=== PATIENT | female | born 1955 | race Caucasian/White ===

== ENCOUNTER → 2020-03-16 | Outpatient (CLI) | payer OTHER ==
--- NOTE | 2020-03-16 15:54 | CARD ---
MR#: [id number] Date of Study: 03/16/2020 Ordering Physician: SHEY ZAPIEN, Referring Physician: SEHY ZAPIEN, Tech: Angela Frye APPROVED REPORT EXAM: Two-dimensional and M-mode echocardiogram with Doppler and color Doppler. Other Information Quality : AverageHR: 72bpm INDICATION Dyspnea RISK FACTORS Hypertension 2D DIMENSIONS RVDd2.2 (2.9-3.5cm)Left Atrium(2D)3.0 (1.6-4.0cm) IVSd0.7 (0.7-1.1cm)Aortic Root(2D)2.8 (2.0-3.7cm) LVDd4.5 (3.9-5.9cm)LVOT Diameter2.0 (1.8-2.4cm) PWd0.9 (0.7-1.1cm)LVDs2.4 (2.5-4.0cm) FS (%) 45.9 %SV71.4 ml Aortic Valve AoV Peak Oscar.220.9cm/sAoV VTI56.4cm AO Peak GR.19.5mmHgLVOT Peak Oscar.97.3cm/s LVOT VTI 22.51cmAO Mean GR.13mmHg ALESSIA (VMAX)1.63zg6UMD (VTI)1.20cm2 Mitral Valve MV E Wbgbrdjs46.4cm/sMV DECEL HAVN442rj MV A Akfnelpz16.5cm/sMV BUM75ic E/A Ratio1.0MVA (PHT)3.21cm2 TDI E/Lateral E'12.9E/Medial E'13.5 Pulmonary Valve PV Peak Yexsaacd44.1cm/sPV Peak Grad.3mmHg Tricuspid Valve TR P. Wtejqahv283xg/sRAP GYVRTDUQ6ihAz TR Peak Gr.29dxDaJBQW25eqUh Pulmonary Vein S1 Barnybnk39.6cm/sD2 Urwyskmy84.9cm/s PVa [id number] LEFT VENTRICLE The left ventricle is normal size. There is normal left ventricular wall thickness. The left ventricu lar systolic function is normal and the ejection fraction is within normal range. The Ejection Fracti on is 55-60%. There is normal LV segmental wall motion. Transmitral Doppler flow pattern is Grade I-a bnormal relaxation pattern. RIGHT VENTRICLE The right ventricle is normal size. There is normal right ventricular wall thickness. The right ventr icular systolic function is normal. ATRIA The left atrium size is normal. The right atrium size is normal. The interatrial septum is intact wit h no evidence for an atrial septal defect or patent foramen ovale as noted on 2-D or Doppler imaging. AORTIC VALVE The aortic valve is calcified but opens well. Doppler and Color Flow revealed no significant aortic r egurgitation. There is no significant aortic valvular stenosis. Calculated aortic valve area is 1.21 cm2 with maximum pressure gradient of 25 mmHg and mean pressure gradient of 15 mmHg. MITRAL VALVE The mitral valve is normal in structure and function. There is no evidence of mitral valve prolapse. There is no mitral valve stenosis. Doppler and Color-flow revealed trace mitral regurgitation. TRICUSPID VALVE The tricuspid valve is normal in structure and function. Doppler and Color Flow revealed trace tricus pid regurgitation 32 mmHg. There is no tricuspid valve stenosis. PULMONIC VALVE The pulmonic valve is not well visualized. Doppler and Color Flow revealed trace pulmonic valvular re gurgitation. GREAT VESSELS The aortic root is normal in size. The IVC is normal in size and collapses >50% with inspiration. PERICARDIAL EFFUSION There is no evidence of significant pericardial effusion. Critical Notification Critical Value: No <Conclusion> The left ventricle is normal size. The left ventricular systolic function is normal and the ejection fraction is within normal range. The Ejection Fraction is 55-60%. Doppler and Color Flow revealed no significant aortic regurgitation. There is no significant aortic valvular stenosis. Doppler and Color-flow revealed trace mitral regurgitation. Doppler and Color Flow revealed trace tricuspid regurgitation 32 mmHg. Signed by : Shey Zapien MD Electronically Approved : 03/16/2020 15:53:31
== END ==
LOC: ECHO 09:52
PROVIDERS: ATTEND Internal Medicine Cardiovascular Disease
DX: I35.1 Nonrheumatic aortic (valve) insufficiency (principal); I10 Essential (primary) hypertension
CPT/HCPCS: 93306

== ENCOUNTER 2021-07-01 10:23 | Inpatient (IN) | payer MEDICARE, OTHER ==
[~2021-07-01] VITALS: Ht 167.6 cm; Wt 66.4 kg
[2021-07-01 11:26] LABS: BASO # 0.1 x10^3/uL (0.0-0.2); BASO % 1 % (0-3); EOS # 0.1 x10^3/uL (0.0-0.7); EOS % 1 % (0-3); HEMATOCRIT 37.9 % (36.0-47.0); HEMOGLOBIN 12.3 g/dL (12.0-15.5); LYMPH # 1.3 x10^3/uL (1.0-4.8); LYMPH % 15 % (24-48); MEAN CORPUSCULAR HEMOGLOBIN 29 pg (25-35); MEAN CORPUSCULAR HGB CONC 33 g/dL (31-37); MEAN CORPUSCULAR VOLUME 90 fL (79-100); MONO # 0.6 x10^3/uL (0.0-1.1); MONO % 6 % (0-9); NEUT # 6.9 x10^3/uL (1.8-7.7); NEUT % 78 % (31-73); PLATELET COUNT 289 x10^3/uL (140-400); RED CELL DISTRIBUTION WIDTH 12.4 % (11.5-14.5); WHITE BLOOD COUNT 8.8 x10^3/uL (4.0-11.0)
[2021-07-01 11:27] LABS: CALCIUM 9.1 mg/dL (8.5-10.1); CREATININE 0.8 mg/dL (0.6-1.0); POTASSIUM 4.4 mmol/L (3.5-5.1)
[2021-07-01] MEDS ORDERED: CONTRAST GIVEN. MC PRN (11:30)
[2021-07-01] MEDS ORDERED: IOHEXOL 300 MG/ML 100ML VIAL. IV ONE (11:30)
--- NOTE | 2021-07-01 12:50 | RAD ---
CT soft tissue neck with contrast: Reason for examination: Right lower quadrant dental pain with edema and air in the mesentery into a r ight neck. Helical images were obtained through the neck with intravenous administration of 70 cc Omnipaque 300. Reconstruction was performed in sagittal and coronal planes. Exposure: One or more of the following individualized dose reduction techniques were utilized for thi s examination: 1. Automated exposure control 2. Adjustment of the mA and/or kV according to patient size 3. Use of iterative reconstruction technique. No abnormality seen at the thyroid gland. No abnormality seen at the visualized portion of the trachea and esophagus. Vocal cords are symmetric. The vallecula and piriform sinuses are symmetric. No abnormality seen at the epiglottis. No abnormalities are seen at the parotid or submandibular glands. The masseter and pterygoid muscles are symmetric. In the right buccal mucosa laterally adjacent to the mandible, there is an irregularly-shaped area of decreased density just anterior to the right masseter muscle which may contain small foci of air. Th is measures approximately 2.2 x 0.9 x 2.0 cm in AP, transverse and craniocaudal dimensions respective ly. This may represent a developing abscess. Dental caries are present in the right posterior molars. There is also some adjacent soft tissue edema. Small lymph nodes are seen in the submandibular regio n. IMPRESSION: 2.2 x 0.9 x 2 cm area of decreased density possibly containing small foci of air in the right buccal mucosa lateral to the mandible with adjacent edema. Findings are suspicious for abscess. There appear to be dental caries in the right posterior molars of the mandible. Electronically signed by: Sandar Frye MD (07/01/2021 12:48 PM) [id number]
[2021-07-01] MEDS ORDERED: AMPICILLIN/SULBACTAM 3 GM in IV DEXTROSE 5% 100ML 100 ML IV ONE (13:15)
--- NOTE | 2021-07-01 13:19 | ED.ADGEN ---
Past Medical History Additional Past Medical Histor: LUPUS Past Surgical History: Other Additional Past Surgical Histo: DENTAL, EYE SURGERY, Smoking Status: Former Smoker Alcohol Use: None General Adult EDM: Chief Complaint: DENTAL PROBLEM HPI: HPI: Patient is a 66 year old female, accompanied by her , who presents emergency department with complaints of right lower facial spreads to the right side of her neck and nausea for the last 3 days. Patient states she had a tooth extracted last month, she was taking amoxicillin after the extraction but never finished it. Two days ago when the pain began she resumed taking the remaining amoxicillin. Patient denies any fever, sore throat, cough, vomiting, diarrhea, abdominal pain, ear pain, headache, cough, or shortness of breath. She currently rates her discomfort a 10 out of 10 on pain scale, pain is worse if there is touched or she opens her mouth. Review of Systems: Review of Systems: Complete ROS is negative unless otherwise noted in the HPI. Current Medications: Current Medications Medications (Trade) Dose Ordered Sig/Davie Start Time Stop Time Status Last Admin Dose Admin Ampicillin Sodium/ Sulbactam Sodium 3 gm/Dextrose 100 ml @ 200 mls/hr 1X ONCE 07/01/21 13:15 07/01/21 13:40 DC 07/01/21 13:30 200 MLS/HR Info (CONTRAST GIVEN -- Rx MONITORING) 1 each PRN DAILY PRN 07/01/21 11:30 07/03/21 11:29 Iohexol (Omnipaque 300 Mg/ml) 70 ml 1X ONCE 07/01/21 11:30 07/01/21 11:31 DC 07/01/21 11:43 70 ML Allergies: Allergies: Allergies Coded Allergies Type Severity Reaction Last Updated Verified No Known Drug Allergies 07/01/21 No Physical Exam: PE: See above Constitutional: Well developed, well nourished, no acute distress, non-toxic appearance. [] HENT: Normocephalic, atraumatic, bilateral external ears normal, nose normal; swelling lateral to the right mandible with erythema to the right side of face that extends to the patient's neck concerning for dental abscess. [] Eyes: PERRLA, EOMI, conjunctiva normal, no discharge. [] Neck: Normal range of motion, no stridor. [] Cardiovascular:Heart rate regular rhythm, no murmur Lungs & Thorax: Respirations even and unlabored, no retractions, no respiratory distress, lungs CTA, no wheeze Skin: Warm, dry Extremities: No cyanosis, ROM intact, no edema. [] Neurologic: Alert and oriented X 3, no focal deficits noted. [] Psychologic: Affect normal, judgement normal, mood normal. [] Current Patient Data: Labs: Laboratory Tests Test 07/01/21 11:15 White Blood Count 8.8 x10^3/uL (4.0-11.0) Red Blood Count 4.20 x10^6/uL (3.50-5.40) Hemoglobin 12.3 g/dL (12.0-15.5) Hematocrit 37.9 % (36.0-47.0) Mean Corpuscular Volume 90 fL (79-100) Mean Corpuscular Hemoglobin 29 pg (25-35) Mean Corpuscular Hemoglobin Concent 33 g/dL (31-37) Red Cell Distribution Width 12.4 % (11.5-14.5) Platelet Count 289 x10^3/uL (140-400) Neutrophils (%) (Auto) 78 % (31-73) H Lymphocytes (%) (Auto) 15 % (24-48) L Monocytes (%) (Auto) 6 % (0-9) Eosinophils (%) (Auto) 1 % (0-3) Basophils (%) (Auto) 1 % (0-3) Neutrophils # (Auto) 6.9 x10^3/uL (1.8-7.7) Lymphocytes # (Auto) 1.3 x10^3/uL (1.0-4.8) Monocytes # (Auto) 0.6 x10^3/uL (0.0-1.1) Eosinophils # (Auto) 0.1 x10^3/uL (0.0-0.7) Basophils # (Auto) 0.1 x10^3/uL (0.0-0.2) Sodium Level 143 mmol/L (136-145) Potassium Level 4.4 mmol/L (3.5-5.1) Chloride Level 106 mmol/L (98-107) Carbon Dioxide Level 27 mmol/L (21-32) Anion Gap 10 (6-14) Blood Urea Nitrogen 14 mg/dL (7-20) Creatinine 0.8 mg/dL (0.6-1.0) Estimated GFR (Cockcroft-Gault) 72.0 Glucose Level 119 mg/dL (70-99) H Calcium Level 9.1 mg/dL (8.5-10.1) Laboratory Tests 07/01/21 11:15 Laboratory Tests 07/01/21 11:15 Vital Signs: Vital Signs Date Time Temp Pulse Resp B/P (MAP) Pulse Ox O2 Delivery O2 Flow Rate FiO2 07/01/21 13:30 67 15 146/68 (94) 97 Room Air 07/01/21 10:23 97.6 97.6 EKG: EKG: [] Heart Score: C/O Chest Pain: No Radiology/Procedures: Radiology/Procedures: PROCEDURE: CT SOFT TISSUE NECK W/CONTRAST CT soft tissue neck with contrast: Reason for examination: Right lower quadrant dental pain with edema and air in the mesentery into a right neck. Helical images were obtained through the neck with intravenous administration of 70 cc Omnipaque 300. Reconstruction was performed in sagittal and coronal p lanes. Exposure: One or more of the following individualized dose reduction techniques were utilized for this examination: 1. Automated exposure control 2. Adjustment of the mA and/or kV according to patient size 3. Use of iterative reconstruction technique. No abnormality seen at the thyroid gland. No abnormality seen at the visualized portion of the trachea and esophagus. Vocal cords are symmetric. The vallecula and piriform sinuses are symmetric. No abnormality seen at the epiglottis. No abnormalities are seen at the parotid or submandibular glands. The masseter and pterygoid muscles are symmetric. In the right buccal mucosa laterally adjacent to the mandible, there is an irregularly-shaped area of decreased density just anterior to the right masseter muscle which may contain small foci of air. This measures approximately 2.2 x 0.9 x 2.0 cm in AP, transverse and craniocaudal dimensions respectively. This may represent a developing abscess. Dental caries are present in the right posterior molars. There is also some adjacent soft tissue edema. Small lymph nodes are seen in the submandibular region. IMPRESSION: 2.2 x 0.9 x 2 cm area of decreased density possibly containing small foci of air in the right buccal mucosa lateral to the mandible with adjacent edema. Findin gs are suspicious for abscess. There appear to be dental caries in the right posterior molars of the mandible. Electronically signed by: Sandra Frye MD (07/01/2021 12:48 PM) [id number] [] Course & Med Decision Making: Course & Med Decision Making Pertinent Labs and Imaging studies reviewed. (See chart for details) [id number] spoke with Dr. Vera professional employer consultant for Oral Max Sx. We discussed the patient's CT and lab results. Will order 1.5 gm of Unasyn IV as requested and admit to the hospitalist. 1344-spoke with Dr. Winkler who is the admitting physician, and care was assumed following discussion of patient. Will admit patient for right dental abscess. Patient's vital signs stable. Patient remains afebrile, appears nontoxic, respirations even and unlabored. Patient will be admitted to the medical/floor. Patient's case and plan of care also discussed with Dr. Gao [] Kathie Disclaimer: Kathie Disclaimer: This electronic medical record was generated, in whole or in part, using a voice recognition dictation system. Departure Departure Impression: Primary Impression: Abscess, dental Disposition: ADMITTED INPATIENT Condition: STABLE Referrals: SHER DOLL (PCP) LUCIE VALENCIA APRN Jul 01, 2021 13:19
--- NOTE | 2021-07-01 13:41 | PDOC1 ---
History and Physical Date of Admission Date of Admission DATE: 07/01/21 TIME: 13:38 Identification/Chief Complaint Chief Complaint Jaw pain Source Source: Patient History of Present Illness History of Present Illness Ms Dewitt is a 66 year old female with PMHx Lupus (2003), CVA (2006), PUD (h. pylori positive) who comes to ED accompanied by her c/o right lower facial spreads to the right side of her neck and nausea for the last 3 days. Patient states she had a right mandibular tooth extracted about 4 weeks ago and was taking amoxicillin after the extraction but never finished it because she started feeling better and in fact went to have routine cleaning 2 weeks ago. On 06/27/21 she noted a little tenderness and sensitivity while eating. On 06/28/2021 she had some swelling of her right neck and started taking the amoxicillin again. 03/13/2018 she awoke in pain and started taking ibuprofen 600 mg and today 07/01/2021 woke and came to the ED because pain was unbearable and she now has pain on opening her mouth. Pain is 10/10 to touch. She cannot eat or drink. No fever, sore throat, cough, vomiting, diarrhea, abdominal pain, ear pain, headache, cough, or shortness of breath. She does have lupus and history of CVA remotely only takes atenolol outpatient and has been taken off aspirin by her internal security manager due to peptic ulcer disease and bleeding ulcer. She notes a recent EGD with no residual ulcer in February 2021. She regularly sees Dr. Moore from cardiology, has had a emergency management system director since her CVA in 2006. WBC 8.8, Hb 12.3, platelets 289, NA 143, K4.4, BUN 14, CR 0.8, glucose 119, calcium 9.1 [id number] fluid collection was noted on the CT of right mandible. Oral maxillo facial surgery consulted Admitted for further care. Past Medical History Cardiovascular: HTN CENTRAL NERVOUS SYSTEM: CVA (2006) Rheumatologic: Other (Lupus 2003) Past Surgical History Past Surgical History: Other (tooth extraction) Family History Family History: Hypertension Social History Smoke: Quit ALCOHOL: none Drugs: None Current Medications Current Medications Current Medications Iohexol (Omnipaque 300 Mg/ml) 70 ml 1X ONCE IV Last administered on 07/01/21at 11:43; Start 07/01/21 at 11:30; Stop 07/01/21 at 11:31; Status DC Info (CONTRAST GIVEN -- Rx MONITORING) 1 each PRN DAILY PRN MC SEE COMMENTS; Start 07/01/21 at 11:30; Stop 07/03/21 at 11:29 Ampicillin Sodium/ Sulbactam Sodium 3 gm/Dextrose 100 ml @ 200 mls/hr 1X ONCE IV Last administered on 07/01/21at 13:30; Start 07/01/21 at 13:15; Stop 07/01/21 at 13:44 Allergies Allergies: Coded Allergies: No Known Drug Allergies (Unverified , 07/01/21) ROS General: No: Chills, Night Sweats, Fatigue, Malaise, Appetite, Other PSYCHOLOGICAL ROS: No: Anxiety, Behavioral Disorder, Concentration difficultie, Decreased libido, Depression, Disorientation, Hallucinations, Hostility, Irritablity, Memory difficulties, Mood Swings, Obsessive thoughts, Physical abuse, Sexual abuse, Sleep disturbances, Suicidal ideation, Other Eyes: No Blurry vision, No Decreased vision, No Double vision, No Dry eyes, No Excessive tearing, No Eye Pain, No Itchy Eyes, No Loss of vision, No Photophobia, No Scotomata, No Uses contacts, No Uses glasses, No Other HEENT: YES: Heacaches, Oral lesions; No: Visual Changes, Hearing change, Nasal congestion, Nasal discharge, Sinus pain, Sore Throat, Epistaxis, Sneezing, Snoring, Tinnitus, Vertigo, Vocal changes, Other ALLERGY AND IMMUNOLOGY: No: Hives, Insect Bite Sensitivity, Itchy/Watery Eyes, Nasal Congestion, Post Nasal Drip, Seasonal Allergies, Other Hematological and Lymphatic: No: Bleeding Problems, Blood Clots, Blood Transfusions, Brusing, Night Sweats, Pallor, Swollen Lymph Nodes, Other ENDOCRINE: No: Breast Changes, Galactorrhea, Hair Pattern Changes, Hot Flashes, Malaise/lethargy, Mood Swings, Palpitations, Polydipsia/polyuria, Skin Changes, Temperature Intolerance, Unexpected Weight Changes, Other Breast: No New/Changing Breast Lumps, No Nipple changes, No Nipple discharge, No Other Respiratory: No: Cough, Hemoptysis, Orthopnea, Pleuritic Pain, Shortness of breath, SOB with excertion, Sputum Changes, Stridor, Tachypnea, Wheezing, Other Cardiovascular: No Chest Pain, No Palpitations, No Orthopnea, No Paroxysmal Noc. Dyspnea, No Edema, No Lt Headedness, No Other Gastrointestinal: No Nausea, No Vomiting, No Abdominal Pain, No Diarrhea, No Constipation, No Melena, No Hematochezia, No Other Genitourinary: No Dysuria, No Frequency, No Incontinence, No Hematuria, No Retention, No Discharge, No Urgency, No Pain, No Flank Pain, No Other, No , No , No , No , No , No , No Musculoskeletal: No Gait Disturbance, No Joint Pain, No Joint Stiffness, No Joint Swelling, No Muscle Pain, No Muscular Weakness, No Pain In:, No Swelling In:, No Other Neurological: No Behavorial Changes, No Bowel/Bladder ControlChng, No Confusion, No Dizziness, No Gait Disturbance, No Headaches, No Impaired Coord/balance, No Memory Loss, No Numbness/Tingling, No Seizures, No Speech Problems, No Tremors, No Visual Changes, No Weakness, No Other Skin: No Dry Skin, No Eczema, No Hair Changes, No Lumps, No Mole Changes, No Mottling, No Nail Changes, No Pruritus, No Rash, No Skin Lesion Changes, No Other, No Acne Vitals Vitals Vital Signs Date Time Temp Pulse Resp B/P (MAP) Pulse Ox O2 Delivery O2 Flow Rate FiO2 07/01/21 10:23 97.6 78 16 208/99 (135) 100 Room Air 97.6 Labs Labs Laboratory Tests Test 07/01/21 11:15 White Blood Count 8.8 x10^3/uL (4.0-11.0) Red Blood Count 4.20 x10^6/uL (3.50-5.40) Hemoglobin 12.3 g/dL (12.0-15.5) Hematocrit 37.9 % (36.0-47.0) Mean Corpuscular Volume 90 fL (79-100) Mean Corpuscular Hemoglobin 29 pg (25-35) Mean Corpuscular Hemoglobin Concent 33 g/dL (31-37) Red Cell Distribution Width 12.4 % (11.5-14.5) Platelet Count 289 x10^3/uL (140-400) Neutrophils (%) (Auto) 78 % (31-73) Lymphocytes (%) (Auto) 15 % (24-48) Monocytes (%) (Auto) 6 % (0-9) Eosinophils (%) (Auto) 1 % (0-3) Basophils (%) (Auto) 1 % (0-3) Neutrophils # (Auto) 6.9 x10^3/uL (1.8-7.7) Lymphocytes # (Auto) 1.3 x10^3/uL (1.0-4.8) Monocytes # (Auto) 0.6 x10^3/uL (0.0-1.1) Eosinophils # (Auto) 0.1 x10^3/uL (0.0-0.7) Basophils # (Auto) 0.1 x10^3/uL (0.0-0.2) Sodium Level 143 mmol/L (136-145) Potassium Level 4.4 mmol/L (3.5-5.1) Chloride Level 106 mmol/L (98-107) Carbon Dioxide Level 27 mmol/L (21-32) Anion Gap 10 (6-14) Blood Urea Nitrogen 14 mg/dL (7-20) Creatinine 0.8 mg/dL (0.6-1.0) Estimated GFR (Cockcroft-Gault) 72.0 Glucose Level 119 mg/dL (70-99) Calcium Level 9.1 mg/dL (8.5-10.1) Laboratory Tests Test 07/01/21 11:15 White Blood Count 8.8 x10^3/uL (4.0-11.0) Red Blood Count 4.20 x10^6/uL (3.50-5.40) Hemoglobin 12.3 g/dL (12.0-15.5) Hematocrit 37.9 % (36.0-47.0) Mean Corpuscular Volume 90 fL (79-100) Mean Corpuscular Hemoglobin 29 pg (25-35) Mean Corpuscular Hemoglobin Concent 33 g/dL (31-37) Red Cell Distribution Width 12.4 % (11.5-14.5) Platelet Count 289 x10^3/uL (140-400) Neutrophils (%) (Auto) 78 % (31-73) Lymphocytes (%) (Auto) 15 % (24-48) Monocytes (%) (Auto) 6 % (0-9) Eosinophils (%) (Auto) 1 % (0-3) Basophils (%) (Auto) 1 % (0-3) Neutrophils # (Auto) 6.9 x10^3/uL (1.8-7.7) Lymphocytes # (Auto) 1.3 x10^3/uL (1.0-4.8) Monocytes # (Auto) 0.6 x10^3/uL (0.0-1.1) Eosinophils # (Auto) 0.1 x10^3/uL (0.0-0.7) Basophils # (Auto) 0.1 x10^3/uL (0.0-0.2) Sodium Level 143 mmol/L (136-145) Potassium Level 4.4 mmol/L (3.5-5.1) Chloride Level 106 mmol/L (98-107) Carbon Dioxide Level 27 mmol/L (21-32) Anion Gap 10 (6-14) Blood Urea Nitrogen 14 mg/dL (7-20) Creatinine 0.8 mg/dL (0.6-1.0) Estimated GFR (Cockcroft-Gault) 72.0 Glucose Level 119 mg/dL (70-99) Calcium Level 9.1 mg/dL (8.5-10.1) Images Images CT soft tissue neck with contrast: Reason for examination: Right lower quadrant dental pain with edema and air in the mesentery into a right neck. Helical images were obtained through the neck with intravenous administration of 70 cc Omnipaque 300. Reconstruction was performed in sagittal and coronal planes. Exposure: One or more of the following individualized dose reduction techniques were utilized for this examination: 1. Automated exposure control 2. Adjustment of the mA and/or kV according to patient size 3. Use of iterative reconstruction technique. No abnormality seen at the thyroid gland. No abnormality seen at the visualized portion of the trachea and esophagus. Vocal cords are symmetric. The vallecula and piriform sinuses are symmetric. No abnormality seen at the epiglottis. No abnormalities are seen at the parotid or submandibular glands. The masseter and pterygoid muscles are symmetric. In the right buccal mucosa laterally adjacent to the mandible, there is an irregularly-shaped area of decreased density just anterior to the right masseter muscle which may contain small foci of air. This measures approximately 2.2 x 0.9 x 2.0 cm in AP, transverse and craniocaudal dimensions respectively. This may represent a developing abscess. Dental caries are present in the right posterior molars. There is also some adjacent soft tissue edema. Small lymph nodes are seen in the submandibular region. IMPRESSION: 2.2 x 0.9 x 2 cm area of decreased density possibly containing small foci of air in the right buccal mucosa lateral to the mandible with adjacent edema. Findings are suspicious for abscess. There appear to be dental caries in the right posterior molars of the mandible. VTE Prophylaxis Ordered VTE Prophylaxis Devices: Yes VTE Pharmacological Prophylaxi: No Assessment/Plan Assessment/Plan Right mandible abscess - IV unasyn. NPO after midnight. Oral maxillo facial surgery consulted, Dr. Vera. IV pain control Dental caries - adjacent to abscess site H/o Lupus - off meds. She thinks burned out lupus H/o remote CVA - does not take any antiplatelet agent H/o PUD (h. pylori positive) - sees Dr Reich outpatient FEN - NPO after midnight, soft diet after PPX - lovenox FULL CODE Dispo - inpatient Justifications for Admission Other Justification RASHAD ROJAS MD Jul 01, 2021 13:41
[2021-07-01] MEDS ORDERED: ONDANSETRON PF 4 MG/2 ML VIAL. IVP PRN (13:45)
[2021-07-01] MEDS ORDERED: ACETAMINOPHEN 325 MG TABLET. PO PRN (13:45)
[2021-07-01] MEDS ORDERED: fentaNYL PF VIAL 100 MCG/2 ML VIAL IVP PRN (13:45)
[2021-07-01] MEDS ORDERED: traMADol 50 MG TABLET PO PRN (15:30)
--- NOTE | 2021-07-01 16:19 | PDOC1 ---
HISTORY AND PHYSICAL Date of Service: DATE: 07/01/21 TIME: 16:10 Chief Complaint Chief Complaint This 66 year old female has been admitted with a chief complaint of lower right facial swelling. Pt reports dental extraction of lower right mandible approximately 1 month ago. She had painful symptoms begin this past Friday, worsen on . She called the dental office on Friday and was unable to reach them. She began to have swelling Friday that began to worsen. She also notes pain in the adjacent teeth. She reported today (Friday) to the [facility] ER for evaluation. A [id number] fluid collection was noted on the CT. Past Medical History Cardiovascular: No pertinent hx Pulmonary: No pertinent hx CENTRAL NERVOUS SYSTEM: CVA (stroke approx. 15 years ago) GI: No pertinent hx Heme/Onc: No pertinent hx Hepatobiliary: No pertinent hx Psych: No pertinent hx Musculoskeletal: low back pain Rheumatologic: Other (Lupus) Infectious disease: No pertinent hx ENT: Other (pain lower right face/mandible. ++Trismus RAYNA at 24mm) Renal/: No pertinent hx Endocrine: No pertinent hx Dermatology: No pertinent hx Allergies Allergies Allergies Coded Allergies Type Severity Reaction Last Updated Verified No Known Drug Allergies 07/01/21 No Review of Symptoms Review of Systems A 14 point ROS was completed with the following noted as positive: Other systems reviewed and negative. Medications Medications reviewed. Physical Exam Physical Exam General Appearance - alert and in no distress Chest - decreased breath sounds at bases Heart - S1 and S2 normal Abdomen - soft, non tender Neurological - alert and oriented Musculoskeletal - generalized weakness Extremities - no edema VTE Prophylaxis Ordered VTE Prophylaxis Devices: Yes VTE Pharmacological Prophylaxi: Yes Assessment Labs Laboratory Tests Test 07/01/21 11:15 White Blood Count 8.8 x10^3/uL (4.0-11.0) Red Blood Count 4.20 x10^6/uL (3.50-5.40) Hemoglobin 12.3 g/dL (12.0-15.5) Hematocrit 37.9 % (36.0-47.0) Mean Corpuscular Volume 90 fL (79-100) Mean Corpuscular Hemoglobin 29 pg (25-35) Mean Corpuscular Hemoglobin Concent 33 g/dL (31-37) Red Cell Distribution Width 12.4 % (11.5-14.5) Platelet Count 289 x10^3/uL (140-400) Neutrophils (%) (Auto) 78 % (31-73) Lymphocytes (%) (Auto) 15 % (24-48) Monocytes (%) (Auto) 6 % (0-9) Eosinophils (%) (Auto) 1 % (0-3) Basophils (%) (Auto) 1 % (0-3) Neutrophils # (Auto) 6.9 x10^3/uL (1.8-7.7) Lymphocytes # (Auto) 1.3 x10^3/uL (1.0-4.8) Monocytes # (Auto) 0.6 x10^3/uL (0.0-1.1) Eosinophils # (Auto) 0.1 x10^3/uL (0.0-0.7) Basophils # (Auto) 0.1 x10^3/uL (0.0-0.2) Sodium Level 143 mmol/L (136-145) Potassium Level 4.4 mmol/L (3.5-5.1) Chloride Level 106 mmol/L (98-107) Carbon Dioxide Level 27 mmol/L (21-32) Anion Gap 10 (6-14) Blood Urea Nitrogen 14 mg/dL (7-20) Creatinine 0.8 mg/dL (0.6-1.0) Estimated GFR (Cockcroft-Gault) 72.0 Glucose Level 119 mg/dL (70-99) Calcium Level 9.1 mg/dL (8.5-10.1) Laboratory Tests Test 07/01/21 11:15 White Blood Count 8.8 x10^3/uL (4.0-11.0) Red Blood Count 4.20 x10^6/uL (3.50-5.40) Hemoglobin 12.3 g/dL (12.0-15.5) Hematocrit 37.9 % (36.0-47.0) Mean Corpuscular Volume 90 fL (79-100) Mean Corpuscular Hemoglobin 29 pg (25-35) Mean Corpuscular Hemoglobin Concent 33 g/dL (31-37) Red Cell Distribution Width 12.4 % (11.5-14.5) Platelet Count 289 x10^3/uL (140-400) Neutrophils (%) (Auto) 78 % (31-73) Lymphocytes (%) (Auto) 15 % (24-48) Monocytes (%) (Auto) 6 % (0-9) Eosinophils (%) (Auto) 1 % (0-3) Basophils (%) (Auto) 1 % (0-3) Neutrophils # (Auto) 6.9 x10^3/uL (1.8-7.7) Lymphocytes # (Auto) 1.3 x10^3/uL (1.0-4.8) Monocytes # (Auto) 0.6 x10^3/uL (0.0-1.1) Eosinophils # (Auto) 0.1 x10^3/uL (0.0-0.7) Basophils # (Auto) 0.1 x10^3/uL (0.0-0.2) Sodium Level 143 mmol/L (136-145) Potassium Level 4.4 mmol/L (3.5-5.1) Chloride Level 106 mmol/L (98-107) Carbon Dioxide Level 27 mmol/L (21-32) Anion Gap 10 (6-14) Blood Urea Nitrogen 14 mg/dL (7-20) Creatinine 0.8 mg/dL (0.6-1.0) Estimated GFR (Cockcroft-Gault) 72.0 Glucose Level 119 mg/dL (70-99) Calcium Level 9.1 mg/dL (8.5-10.1) STROKE: CVA (remote past) SEPSIS: Other (localized lower right facial likely odontogenic infection. Possibly osteomyelitis as extraction was performed 1 month ago. Possilby necrotic adjacent tooth) Plan Plan A/P 66 yof s/p extraction 1 month ago with several days of pain and swelling. PMH significant for Lupus. Pt on IV ABX currently. Plan to post to the OR for I&D of lower right intraoral space. If worsening, plan percutaneous incision as well. Possible extraction of any non restorable teeth. Plan deep bone biopsy and debridement of non vital bone. Plan NPO after midnight. For more details regarding further plans, please refer to the orders. Justifications for Admission Other Justification CARD,RENEE Santana DMD Jul 01, 2021 16:19
[2021-07-01 16:30] VITALS: BP 202/82
[2021-07-01] MEDS ORDERED: hydrALAZINE 20 MG/ML VIAL. IVP PRN (17:00)
[2021-07-01] MEDS: AMPICILLIN/SULBACTAM 1.5 GM in IV NORMAL SALINE 50ML 50 ML IV SCH (17:42)
[2021-07-01 19:00] VITALS: BP 126/53
[2021-07-01] MEDS: METOPROLOL TART IMMED RELEASE 25 MG TABLET. PO SCH (20:10)
[2021-07-01] MEDS: KETOROLAC 30 MG/ML VIAL. IVP PRN (20:10)
[2021-07-01 23:00] VITALS: BP 144/72
[2021-07-02] MEDS: AMPICILLIN/SULBACTAM 1.5 GM in IV NORMAL SALINE 50ML 50 ML IV SCH ×4 (00:50→17:27)
[2021-07-02 03:00] VITALS: BP 163/79
[2021-07-02 07:00] VITALS: BP 183/80
[2021-07-02 07:55] LABS: ALBUMIN 3.3 g/dL (3.4-5.0); ALBUMIN/GLOBULIN RATIO 1.1 (1.0-1.7); CALCIUM 8.5 mg/dL (8.5-10.1); CREATININE 0.7 mg/dL (0.6-1.0); POTASSIUM 4.5 mmol/L (3.5-5.1); TOTAL BILIRUBIN 0.4 mg/dL (0.2-1.0); TOTAL PROTEIN 6.3 g/dL (6.4-8.2)
[2021-07-02] MEDS ORDERED: C.DIFF MED SCREEN BY RX. MC ONE (09:00)
[2021-07-02] MEDS: METOPROLOL TART IMMED RELEASE 25 MG TABLET. PO SCH (09:01)
[2021-07-02] MEDS: KETOROLAC 30 MG/ML VIAL. IVP PRN (09:03)
--- NOTE | 2021-07-02 09:17 | NUR ---
Pharmacy Medication Review S: Consulted for medication review re: C.diff Risk Assessment score of 4 O: YESENIA MURPHY is a 66 year old with: Previous C.diff infection: No Previous hospitalization: Within 60 days Recent antibiotics: Within 30 days Use of gastric acid suppressor: No Transfer from [place]/[facility]: No Current antibiotic regimen: Current acid suppression regimen: A: Patient has been identified as having risk factors for C.diff infection as noted above. P: Antibiotic Regimen recommendation made: No Probiotic ordered: No (Lupas Patient) PPI changed to [id number]: N/A Domingo Truong, [facility], 07/02/21 0917
--- NOTE | 2021-07-02 10:11 | PDOC2 ---
VANGIE MARIO SENIOR RD ENGINEER 07/02/21 1011: CARDIAC CONSULT DATE OF CONSULT Date of Consult DATE: 07/02/21 TIME: 10:00 REASON FOR CONSULT Reason for Consult: Pre-op eval REFERRING PHYSICIAN Referring Physician: Dr. Winkler SOURCE Source: Chart review, Patient HISTORY OF PRESENT ILLNESS HISTORY OF PRESENT ILLNESS This is a 66 yo female who presented secondary to right lower facial/jaw pain and swelling that extends to her right neck. Associated with nausea. Patient reports having tooth extracted last month. She did not complete course of amoxicillin post extraction. Pain has become so severe that she has been unable to eat/drink, which prompted her arrival to the ED. CT of right neck with evidence of abscess. She denies any chest pain, palpitation, dizziness, diaphoresis, or SOA. PAST MEDICAL HISTORY Cardiovascular: HTN CENTRAL NERVOUS SYSTEM: CVA GI: Peptic Ulcer disease Rheumatologic: Other (Lupus ) PAST SURGICAL HISTORY Past Surgical History: Other (tooth extraction ) FAMILY HISTORY Family History: Hypertension SOCIAL HISTORY Smoke: Quit ALCOHOL: none Drugs: None CURRENT MEDICATIONS CURRENT MEDICATIONS Current Medications Medications (Trade) Dose Ordered Sig/Davie Route PRN Reason Start Time Stop Time Status Last Admin Dose Admin Iohexol (Omnipaque 300 Mg/ml) 70 ml 1X ONCE IV 07/01/21 11:30 07/01/21 11:31 DC 07/01/21 11:43 Ampicillin Sodium/ Sulbactam Sodium 3 gm/Dextrose 100 ml @ 200 mls/hr 1X ONCE IV 07/01/21 13:15 07/01/21 13:40 DC 07/01/21 13:30 Ampicillin Sodium/ Sulbactam Sodium 1.5 gm/Sodium Chloride 50 ml @ 100 mls/hr Q6HRS IV 07/01/21 18:00 07/02/21 04:56 Metoprolol Tartrate (Lopressor) 25 mg BID PO 07/01/21 21:00 07/02/21 09:01 Hydralazine HCl (Apresoline Inj) 10 mg PRN Q4HRS PRN IVP ELEVATED BP, SEE COMMENTS 07/01/21 17:00 07/01/21 17:43 Ketorolac Tromethamine (Toradol 30mg Vial) 30 mg PRN Q6HRS PRN IVP INFLAMMATION 07/01/21 17:00 07/02/21 09:03 DC 07/02/21 09:03 ALLERGIES ALLERGIES: Coded Allergies: No Known Drug Allergies (Unverified , 07/01/21) ROS Review of System 14 point ROS conducted with pertinent positives noted above in HPI PHYSICAL EXAM General: Alert, Oriented X3, Cooperative, No acute distress HEENT: Atraumatic, Other (right jaw/facial edema ) Lungs: Clear to auscultation Heart: Regular rate Abdomen: Soft Extremities: Normal pulses Skin: No significant lesion Neuro: Normal speech, Sensation intact Psych/Mental Status: Mental status NL, Mood NL MUSCULOSKELETAL: Osteoarthritic changes both hands VITALS/I&O VITALS/I&O: Vital Signs Date Time Temp Pulse Resp B/P (MAP) Pulse Ox O2 Delivery O2 Flow Rate FiO2 07/02/21 09:01 77 163/79 07/02/21 03:00 98.1 18 97 Room Air 98.1 I & O 07/01/21 07/01/21 07/02/21 15:00 23:00 07:00 Intake Total 300 ml Balance 300 ml LABS Lab: Laboratory Tests Test 07/01/21 11:15 07/01/21 13:49 07/02/21 06:45 White Blood Count 8.8 x10^3/uL (4.0-11.0) Red Blood Count 4.20 x10^6/uL (3.50-5.40) Hemoglobin 12.3 g/dL (12.0-15.5) Hematocrit 37.9 % (36.0-47.0) Mean Corpuscular Volume 90 fL (79-100) Mean Corpuscular Hemoglobin 29 pg (25-35) Mean Corpuscular Hemoglobin Concent 33 g/dL (31-37) Red Cell Distribution Width 12.4 % (11.5-14.5) Platelet Count 289 x10^3/uL (140-400) Neutrophils (%) (Auto) 78 % (31-73) H Lymphocytes (%) (Auto) 15 % (24-48) L Monocytes (%) (Auto) 6 % (0-9) Eosinophils (%) (Auto) 1 % (0-3) Basophils (%) (Auto) 1 % (0-3) Neutrophils # (Auto) 6.9 x10^3/uL (1.8-7.7) Lymphocytes # (Auto) 1.3 x10^3/uL (1.0-4.8) Monocytes # (Auto) 0.6 x10^3/uL (0.0-1.1) Eosinophils # (Auto) 0.1 x10^3/uL (0.0-0.7) Basophils # (Auto) 0.1 x10^3/uL (0.0-0.2) Sodium Level 143 mmol/L (136-145) 145 mmol/L (136-145) Potassium Level 4.4 mmol/L (3.5-5.1) 4.5 mmol/L (3.5-5.1) Chloride Level 106 mmol/L (98-107) 107 mmol/L (98-107) Carbon Dioxide Level 27 mmol/L (21-32) 26 mmol/L (21-32) Anion Gap 10 (6-14) 12 (6-14) Blood Urea Nitrogen 14 mg/dL (7-20) 12 mg/dL (7-20) Creatinine 0.8 mg/dL (0.6-1.0) 0.7 mg/dL (0.6-1.0) Estimated GFR (Cockcroft-Gault) 72.0 84.0 Glucose Level 119 mg/dL (70-99) H 98 mg/dL (70-99) Calcium Level 9.1 mg/dL (8.5-10.1) 8.5 mg/dL (8.5-10.1) SARS-CoV-2 (PCR) Not detected (NOT DETECTD) BUN/Creatinine Ratio 17 (6-20) Total Bilirubin 0.4 mg/dL (0.2-1.0) Aspartate Amino Transferase (AST) 11 U/L (15-37) L Alanine Aminotransferase (ALT) 22 U/L (14-59) Alkaline Phosphatase 64 U/L (46-116) Total Protein 6.3 g/dL (6.4-8.2) L Albumin 3.3 g/dL (3.4-5.0) L Albumin/Globulin Ratio 1.1 (1.0-1.7) Laboratory Tests 07/01/21 11:15 Laboratory Tests 07/01/21 11:15 07/02/21 06:45 ECHOCARDIOGRAM ECHOCARDIOGRAM <Conclusion> The left ventricle is normal size. The left ventricular systolic function is normal and the ejection fraction is within normal range. The Ejection Fraction is 55-60%. Doppler and Color Flow revealed no significant aortic regurgitation. There is no significant aortic valvular stenosis. Doppler and Color-flow revealed trace mitral regurgitation. Doppler and Color Flow revealed trace tricuspid regurgitation 32 mmHg. DATE: 03/16/20 1221 ASSESSMENT/PLAN ASSESSMENT/PLAN 1. Right/jaw neck pain/edema; s/p recent tooth extraction. CT with evidence of right mandible abscess. Oral maxillo facial surgery consulted. Plans for I&D of lower right intraoral space. Echo 03/31 with preserved LV function. Will check echo to assess LV systolic function. Would be mild-moderate risk for non-cardiac surgery unless significant LV dysfunction was noted. 2. Hypertension; controlled overall 3. H/o CVA; secondary prevention upon discharge 4. H/o Lupus SHEY DIAS MD 07/02/21 1642: CARDIAC CONSULT ASSESSMENT/PLAN ASSESSMENT/PLAN Patient seen and examined She is feeling mildly better. I agree with our nurse practitioners assessment and plan. Right/jaw neck pain/edema; s/p recent tooth extraction. CT with evidence of right mandible abscess. Oral maxillo facial surgery consulted. Plans for I&D of lower right intraoral space. Previous echo on 03/31 with preserved LV function. Will check echo to update assessment of LV systolic function. Would be mild- moderate risk for non-cardiac surgery unless significant LV dysfunction or valve disease is present. Hypertension; controlled overall H/o CVA; secondary prevention upon discharge H/o Lupus VANGIE MARIO APRN Jul 02, 2021 10:11 SHEY DIAS MD Jul 02, 2021 16:42
[2021-07-02 11:00] VITALS: BP 158/82
--- NOTE | 2021-07-02 11:04 | PDOC ---
[employer] PROGRESS NOTE Date of Service DOS: DATE: 07/02/21 TIME: 11:03 Chief Complaint Chief Complaint Dental infection Recent dental extraction with noncompliance with antibiotics after surgery History of lupus Hypertension Stroke PUD History of Present Illness History of Present Illness 07/02/2021 Patient seen and examined Discussed with RN Chart reviewed Discussed with case management Dr. Vera plans to take her to surgery today 1-Plan to post to the OR for I&D of lower right intraoral space. If worsening, plan percutaneous incision as well. 2-Possible extraction of any non restorable teeth. 3-Plan deep bone biopsy and debridement of non vital bone. Vitals/I&O Vitals/I&O: Vital Signs Date Time Temp Pulse Resp B/P (MAP) Pulse Ox O2 Delivery O2 Flow Rate FiO2 07/02/21 09:01 77 163/79 07/02/21 03:00 98.1 18 97 Room Air 98.1 I & O 07/01/21 07/01/21 07/02/21 15:00 23:00 07:00 Intake Total 300 ml Balance 300 ml Physical Exam General: Alert Heart: Regular rate Lungs: Clear Abdomen: Normal bowel sounds Extremities: No clubbing Skin: No rashes Labs Labs: Laboratory Tests Test 07/01/21 11:15 07/01/21 13:49 07/02/21 06:45 White Blood Count 8.8 x10^3/uL (4.0-11.0) Red Blood Count 4.20 x10^6/uL (3.50-5.40) Hemoglobin 12.3 g/dL (12.0-15.5) Hematocrit 37.9 % (36.0-47.0) Mean Corpuscular Volume 90 fL (79-100) Mean Corpuscular Hemoglobin 29 pg (25-35) Mean Corpuscular Hemoglobin Concent 33 g/dL (31-37) Red Cell Distribution Width 12.4 % (11.5-14.5) Platelet Count 289 x10^3/uL (140-400) Neutrophils (%) (Auto) 78 % (31-73) Lymphocytes (%) (Auto) 15 % (24-48) Monocytes (%) (Auto) 6 % (0-9) Eosinophils (%) (Auto) 1 % (0-3) Basophils (%) (Auto) 1 % (0-3) Neutrophils # (Auto) 6.9 x10^3/uL (1.8-7.7) Lymphocytes # (Auto) 1.3 x10^3/uL (1.0-4.8) Monocytes # (Auto) 0.6 x10^3/uL (0.0-1.1) Eosinophils # (Auto) 0.1 x10^3/uL (0.0-0.7) Basophils # (Auto) 0.1 x10^3/uL (0.0-0.2) Sodium Level 143 mmol/L (136-145) 145 mmol/L (136-145) Potassium Level 4.4 mmol/L (3.5-5.1) 4.5 mmol/L (3.5-5.1) Chloride Level 106 mmol/L (98-107) 107 mmol/L (98-107) Carbon Dioxide Level 27 mmol/L (21-32) 26 mmol/L (21-32) Anion Gap 10 (6-14) 12 (6-14) Blood Urea Nitrogen 14 mg/dL (7-20) 12 mg/dL (7-20) Creatinine 0.8 mg/dL (0.6-1.0) 0.7 mg/dL (0.6-1.0) Estimated GFR (Cockcroft-Gault) 72.0 84.0 Glucose Level 119 mg/dL (70-99) 98 mg/dL (70-99) Calcium Level 9.1 mg/dL (8.5-10.1) 8.5 mg/dL (8.5-10.1) Coronavirus (COVID-19)(PCR) Not detected (NOT DETECTD) BUN/Creatinine Ratio 17 (6-20) Total Bilirubin 0.4 mg/dL (0.2-1.0) Aspartate Amino Transf (AST/SGOT) 11 U/L (15-37) Alanine Aminotransferase (ALT/SGPT) 22 U/L (14-59) Alkaline Phosphatase 64 U/L (46-116) Total Protein 6.3 g/dL (6.4-8.2) Albumin 3.3 g/dL (3.4-5.0) Albumin/Globulin Ratio 1.1 (1.0-1.7) Assessment and Plan Assessmemt and Plan Problems Medical Problems: (1) Abscess, dental Status: Acute Dental infection Recent dental extraction with noncompliance with antibiotics after surgery History of lupus Hypertension Stroke PUD Plan Continue antibiotics Pain meds next IV fluids Appreciate cardiology and oral surgery input The plan is to go to surgery today please see below 1-Plan to post to the OR for I&D of lower right intraoral space. If worsening, plan percutaneous incision as well. 2-Possible extraction of any non restorable teeth. 3-Plan deep bone biopsy and debridement of non vital bone. Comment Review of Relevant I have reviewed the following items elly (where applicable) has been applied. Medications: Current Medications Medications (Trade) Dose Ordered Sig/Davie Route PRN Reason Start Time Stop Time Status Last Admin Dose Admin Iohexol (Omnipaque 300 Mg/ml) 70 ml 1X ONCE IV 07/01/21 11:30 07/01/21 11:31 DC 07/01/21 11:43 Ampicillin Sodium/ Sulbactam Sodium 3 gm/Dextrose 100 ml @ 200 mls/hr 1X ONCE IV 07/01/21 13:15 07/01/21 13:40 DC 07/01/21 13:30 Ampicillin Sodium/ Sulbactam Sodium 1.5 gm/Sodium Chloride 50 ml @ 100 mls/hr Q6HRS IV 07/01/21 18:00 07/02/21 04:56 Metoprolol Tartrate (Lopressor) 25 mg BID PO 07/01/21 21:00 07/02/21 09:01 Hydralazine HCl (Apresoline Inj) 10 mg PRN Q4HRS PRN IVP ELEVATED BP, SEE COMMENTS 07/01/21 17:00 07/01/21 17:43 Ketorolac Tromethamine (Toradol 30mg Vial) 30 mg PRN Q6HRS PRN IVP INFLAMMATION 07/01/21 17:00 07/02/21 09:03 DC 07/02/21 09:03 Justifications for Admission Other Justification BROOKLYNN BRAVO III DO Jul 02, 2021 11:03
--- NOTE | 2021-07-02 11:50 | NUR ---
SW following. Discussed with RN, pt from home with , room air, COVID-19 negative. Cardiology following. RN advised no SW needs at this time. SW will continue to follow.
--- NOTE | 2021-07-02 13:55 | PDOC ---
GENERAL General: Pt AAO X3 Patient feels that symptoms are generally improving with the antibiotics +Flatus Ab x 4 extremities VITAL SIGNS Vital Signs/I&O: Vital Signs Date Time Temp Pulse Resp B/P (MAP) Pulse Ox O2 Delivery O2 Flow Rate FiO2 07/02/21 11:00 98.1 77 18 158/82 (107) 96 Room Air 98.1 I & O 07/01/21 07/01/21 07/02/21 15:00 23:00 07:00 Intake Total 300 ml Balance 300 ml ALLERGIES Allergies: Allergies Coded Allergies Type Severity Reaction Last Updated Verified No Known Drug Allergies 07/01/21 No MEDS Medications: Current Medications Medications (Trade) Dose Ordered Sig/Davie Route PRN Reason Start Time Stop Time Status Last Admin Dose Admin Ampicillin Sodium/ Sulbactam Sodium 1.5 gm/Sodium Chloride 50 ml @ 100 mls/hr Q6HRS IV 07/01/21 18:00 07/02/21 11:25 Metoprolol Tartrate (Lopressor) 25 mg BID PO 07/01/21 21:00 07/02/21 09:01 Hydralazine HCl (Apresoline Inj) 10 mg PRN Q4HRS PRN IVP ELEVATED BP, SEE COMMENTS 07/01/21 17:00 07/01/21 17:43 Ketorolac Tromethamine (Toradol 30mg Vial) 30 mg PRN Q6HRS PRN IVP INFLAMMATION 07/01/21 17:00 07/02/21 09:03 DC 07/02/21 09:03 LAB Lab: Laboratory Tests Test 07/02/21 06:45 Sodium Level 145 mmol/L (136-145) Potassium Level 4.5 mmol/L (3.5-5.1) Chloride Level 107 mmol/L (98-107) Carbon Dioxide Level 26 mmol/L (21-32) Anion Gap 12 (6-14) Blood Urea Nitrogen 12 mg/dL (7-20) Creatinine 0.7 mg/dL (0.6-1.0) Estimated GFR (Cockcroft-Gault) 84.0 BUN/Creatinine Ratio 17 (6-20) Glucose Level 98 mg/dL (70-99) Calcium Level 8.5 mg/dL (8.5-10.1) Total Bilirubin 0.4 mg/dL (0.2-1.0) Aspartate Amino Transferase (AST) 11 U/L (15-37) L Alanine Aminotransferase (ALT) 22 U/L (14-59) Alkaline Phosphatase 64 U/L (46-116) Total Protein 6.3 g/dL (6.4-8.2) L Albumin 3.3 g/dL (3.4-5.0) L Albumin/Globulin Ratio 1.1 (1.0-1.7) Laboratory Tests 07/02/21 06:45 IMAGING Imaging: abscess lower right mandible, and carious tooth #31 ASSESSMENT & PLAN A&P 66 yof with abscess lower right mandible, and carious #31 Plan to OR for I&D likely extraction #31, and non salvagable teeth, debridement of mandible cultures bone/abscess Justifications for Admission Other Justification CARD,RENEE Santana DMD Jul 02, 2021 13:55
[2021-07-02 15:00] VITALS: BP 161/71
--- NOTE | 2021-07-02 16:41 | PDOC ---
SUBJECTIVE Subjective Patient states that she's feeling better, limited changes otherwise. ANS Service at [facility] states that they are unable to provide anesthesia services today. OBJECTIVE Objective patient's swelling is improving, and patient states that there is little pain anymore RAYNA 38 FROM tongue, uvula at midline, FOM supple FROM neck, no draining purulence. No erythema, no cellulitis, no induration Vital Signs Vital Signs Date Time Temp Pulse Resp B/P (MAP) Pulse Ox O2 Delivery O2 Flow Rate FiO2 07/02/21 15:00 98.5 80 18 161/71 (101) 97 Room Air 98.5 07/02/21 11:00 98.1 77 18 158/82 (107) 96 Room Air 98.1 07/02/21 09:01 77 163/79 07/02/21 08:00 Room Air 07/02/21 07:00 97.5 85 18 183/80 (114) 95 Room Air 97.5 07/02/21 03:00 98.1 77 18 163/79 (107) 97 Room Air 98.1 07/01/21 23:00 97.9 78 18 144/72 (96) 95 Room Air 97.9 07/01/21 20:16 Room Air 07/01/21 20:10 85 126/53 07/01/21 19:00 97.5 85 18 126/53 (77) 95 Room Air 97.5 07/01/21 17:43 98 202/82 I & O Intake and Output 07/02/21 07:00 Intake Total 300 ml Balance 300 ml Intake Oral 300 ml # Voids 2 PHYSICAL EXAM Physical Exam see objective ASSESSMENT/PLAN Assessment/Plan 66 yof with lower left odontogenic abscess improving following 24 hours of IV ABX ANS Service at [facility] states that they are unable to provide anesthesia services today. As the patient's condition has clinically improved significantly and is not at risk of airway embarrassment in the near future, we'll plan to perform the services in the am in our outpatient clinic. Plan D/C to home and return to out patient clinic in AM for I&D, biopsy, c ulture, and extraction. COMMENT Lab Laboratory Tests Test 07/02/21 06:45 Sodium Level 145 mmol/L (136-145) Potassium Level 4.5 mmol/L (3.5-5.1) Chloride Level 107 mmol/L (98-107) Carbon Dioxide Level 26 mmol/L (21-32) Anion Gap 12 (6-14) Blood Urea Nitrogen 12 mg/dL (7-20) Creatinine 0.7 mg/dL (0.6-1.0) Estimated GFR (Cockcroft-Gault) 84.0 BUN/Creatinine Ratio 17 (6-20) Glucose Level 98 mg/dL (70-99) Calcium Level 8.5 mg/dL (8.5-10.1) Total Bilirubin 0.4 mg/dL (0.2-1.0) Aspartate Amino Transf (AST/SGOT) 11 U/L (15-37) Alanine Aminotransferase (ALT/SGPT) 22 U/L (14-59) Alkaline Phosphatase 64 U/L (46-116) Total Protein 6.3 g/dL (6.4-8.2) Albumin 3.3 g/dL (3.4-5.0) Albumin/Globulin Ratio 1.1 (1.0-1.7) Justifications for Admission Other Justification CARD,RENEE Santana DMD Jul 02, 2021 16:41
--- NOTE | 2021-07-02 18:24 | NUR ---
patient discharged home with self care and plan for outpatient I&D with Dr. Vera 07/03. Patient verbalized understanding of discharge instructions.
--- NOTE | 2021-07-03 01:17 | DS ---
DATE OF DISCHARGE: 07/02/2021 ADMITTING SERVICES: Internal medicine. HOSPITALISTS: Vamsi Winkler MD and Davonte Buckley DO CONSULTING SERVICE: Oral Maxillofacial Surgery. ATTENDING PHYSICIAN: Pratik Vera DMD FINAL DIAGNOSES: She has right mandibular abscess and nonrestorable tooth #31 with odontogenic abscess. PROCEDURE PERFORMED: IV antibiotic administration. HISTORY OF PRESENT ILLNESS: She is a 66-year-old female who has had recent tooth extraction approximately 1 month ago where she took antibiotics for following the extractions for several days. She states she did not complete the antibiotics. Approximately 3 weeks later this past week on Friday, she started to just experience pain. She resumed the antibiotics for 2 days and before she ran out, pain and swelling increased from Friday, , Friday. Friday, she reached out to the dental office and I was unable to reach them. On Friday, the swelling had developed and she felt indicated to drive to the ER for evaluation and management. Oral maxillofacial surgery, Dr. Vera, was on-call, came and evaluated the patient and found the right buccal abscess of the right mandible and possible nonrestorable tooth #31. Concern for latent infection was present and indication for IV antibiotic administration. IV antibiotics were administered for approximately 24 hours. On 07/02/2021, the OR was unable to accommodate an incision and drainage procedure. Given her significant improvement over 24 hours of IV antibiotics, it was felt reasonable to discharge this patient to home where she could spend the night and return to Dr. Vera's clinic as an outpatient on 07/03/2021 for incision and drainage and extraction of any indicated teeth, biopsy and culture. We made discussion with the patient and her and daughters, it was positive and perhaps they were affable with this plan. Risks, alternatives and benefits were discussed. The patient significantly improved. She had free range of motion of neck, floor of mouth and tongue with no urgent concern for airway embarrassment. I was unable to reach Dr. Buckley this afternoon and stepped in to perform the discharge and associated paperwork. DISCHARGING MEDICATIONS: 1. Augmentin 875, dispensed #20, 1 p.o. b.i.d. until gone. 2. Peridex mouth rinse chlorhexidine gluconate. One bottle 15 mL gently rinse b.i.d. These prescriptions were found in to [facility] at the [facility] DISCHARGE INSTRUCTIONS: Activities ad bienvenido. Diet is regular as tolerated. She is planned to follow up in approximately 14 hours with an 8-hour n.p.o. status in my clinic as an outpatient to perform the procedures in our clinic. The patient's and daughters, one of which is a nurse are affable with this plan and risks, alternatives and benefits have been discussed with the patient and they were proceeding with this course of action to expedite her care. KWAME/EMMA DR: Bentley TID: [id number] MTDD
--- NOTE | 2021-07-03 07:43 | CARD ---
MR#: [id number] Date of Study: 07/02/2021 Ordering Physician: VANGIE MARIO, Referring Physician: VANGIE MARIO, Tech: Elaine Dalleighruslan, [facility] APPROVED REPORT EXAM: Two-dimensional and M-mode echocardiogram with Doppler and color Doppler. Other Information Quality : AverageHR: 84bpm INDICATION Pre-Op 2D DIMENSIONS Left Atrium(2D)3.1 (1.6-4.0cm)IVSd0.9 (0.7-1.1cm) Aortic Root(2D)2.6 (2.0-3.7cm)LVDd4.5 (3.9-5.9cm) LVOT Diameter2.0 (1.8-2.4cm)PWd0.9 (0.7-1.1cm) LVDs2.9 (2.5-4.0cm)FS (%) 34.9 % SV58.0 mlLVEF(%)64.3 (>50%) Aortic Valve AoV Peak Oscar.269.5cm/sAoV VTI60.2cm AO Peak GR.29.0mmHgLVOT VTI 25.75cm AO Mean GR.17mmHg Mitral Valve MV E Xcoerlps246.9cm/sMV E Peak Gr.7mmHg MV DECEL [id number] A Flnjyouy299.0cm/s MV E Mean Gr.4mmHgE/A Ratio1.1 TDI Lateral E' P. V8.04cm/sMedial E' P. V6.89cm/s E/Lateral E'13.3E/Medial E'15.5 Tricuspid Valve TR P. Letuwpqk618tl/sRAP [id number] TR Peak Gr.19hrNeMLFL47qvCo Pulmonary Vein S1 Zjuxeiuy29.9cm/sS2 Yzagkyix38.50cm/s D2 Aoesgdim36.5cm/s LEFT VENTRICLE The left ventricle is normal size. There is normal left ventricular wall thickness. The left ventricu lar systolic function is normal. The Ejection Fraction is 55%. There is normal LV segmental wall michael on. Transmitral Doppler flow pattern is Grade II-pseudonormal filling dynamics. RIGHT VENTRICLE The right ventricle is normal size. There is normal right ventricular wall thickness. The right ventr icular systolic function is normal. ATRIA The left atrium size is normal. The right atrium size is normal. The interatrial septum is intact wit h no evidence for an atrial septal defect or patent foramen ovale as noted on 2-D or Doppler imaging. AORTIC VALVE The aortic valve is thickened but opens well. Doppler and Color Flow revealed no significant aortic r egurgitation. There is no significant aortic valvular stenosis. Calculated aortic valve area is 1.29 cm2 with maximum pressure gradient of 33 mmHg and mean pressure gradient of 18 mmHg. MITRAL VALVE The mitral valve is normal in structure and function. There is no evidence of mitral valve prolapse. There is no mitral valve stenosis. Doppler and Color-flow revealed trace mitral regurgitation. TRICUSPID VALVE The tricuspid valve is normal in structure and function. Doppler and Color Flow revealed trace tricus pid regurgitation with an estimated PAP of 46 mmHg. There is no tricuspid valve stenosis. PULMONIC VALVE The pulmonary valve is normal in structure and function. Doppler and Color Flow revealed trace pulmon ic valvular regurgitation. GREAT VESSELS The aortic root is normal in size. The IVC is normal in size and collapses >50% with inspiration. PERICARDIAL EFFUSION There is no evidence of significant pericardial effusion. Critical Notification Critical Value: No <Conclusion> The left ventricular systolic function is normal. The Ejection Fraction is 55%. There is normal LV segmental wall motion. Transmitral Doppler flow pattern is Grade II-pseudonormal filling dynamics. Trace mitral regurgitation. Trace tricuspid regurgitation with an estimated PAP of 46 mmHg. There is no evidence of significant pericardial effusion. Signed by : Mike Blackburn, Electronically Approved : 07/03/2021 07:42:25
== END 2021-07-02 18:23 | disposition home or self-care (01) | DRG 158 ==
LOC: ER 10:23 → 4 NORTH 13:44
PROVIDERS: ADMIT Internal Medicine; ATTEND Internal Medicine
DX: K04.7 Periapical abscess without sinus (principal); K12.2 Cellulitis and abscess of mouth; I10 Essential (primary) hypertension; K02.9 Dental caries, unspecified; K27.9 Peptic ulcer, site unspecified, unspecified as acute or chronic, without hemorrhage or perforation; M27.2 Inflammatory conditions of jaws; Z82.49 Family history of ischemic heart disease and other diseases of the circulatory system; Z86.73 Personal history of transient ischemic attack (TIA), and cerebral infarction without residual deficits; Z87.11 Personal history of peptic ulcer disease; Z87.891 Personal history of nicotine dependence; Z91.19 Patient's noncompliance with other medical treatment and regimen
CPT/HCPCS: 36415; 70491; 80048; 80053; 85025; 93306; 96365; 96366; 96375; J0295; J0360; J1885; J7060; Q9967; U0003; 99285-25; C8929; G0378